=== PATIENT | male | born 1980 | race Hispanic/Latino ===

== ENCOUNTER → 2020-07-28 | Outpatient (CLI) | payer OTHER | LOC: RAD 14:16 | PROVIDERS: ATTEND Radiology Body Imaging | DX: M25.552 Pain in left hip (principal); M79.672 Pain in left foot ==

== ENCOUNTER → 2020-08-18 | Outpatient (CLI) | payer OTHER | LOC: NM 08:22 | PROVIDERS: ATTEND Radiology Body Imaging | DX: Z85.47 Personal history of malignant neoplasm of testis (principal); M25.552 Pain in left hip; M79.605 Pain in left leg; M54.9 Dorsalgia, unspecified | CPT/HCPCS: 78306; A9503 ==